=== PATIENT | male | born 1980 | race Caucasian/White ===

== ENCOUNTER 2016-09-15 17:54 | Emergency (ER) | payer OTHER ==
[2016-09-15 18:39] VITALS: BP 125/82
[2016-09-15] MEDS ORDERED: Ketorolac 30 MG/ML SDV IVPUSH ONE (19:08)
[2016-09-15] MEDS ORDERED: Sodium Chloride 0.9% 1,000 ML IV ONE (19:09)
[2016-09-15] MEDS ORDERED: Sodium Chloride 0.9% 10 ML Syringe FLUSH PRN (19:09)
--- NOTE | 2016-09-15 19:17 | EDM.PDOC ---
ED HPI GENERAL MEDICAL PROBLEM - General Chief Complaint: General Stated Complaint: BILATERAL FLANK PAIN, RECOVERING FROM VIRUS Time Seen by Provider: 09/15/16 18:50 Source of Information: Reports: Patient History Limitations: Reports: No Limitations - History of Present Illness INITIAL COMMENTS - FREE TEXT/NARRATIVE: Patient presents today with complaints of continued diarrhea and new onset bilateral flank pain since this morning. Nahum reports he went on a cruise with his 14 days ago, became ill, went to the clinic in [place] 7 days ago and was told he had norovirus. He has not had his stool or lab work done. 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, Other (see below) (fluids) Right Back Pain Score (Numeric/FACES): 6 - Related Data Allergies Allergy/AdvReac Type Severity Reaction Status Date / Time No Known Allergies Allergy Verified 09/15/16 19:04 Home Meds: Home Meds Ondansetron [Zofran ODT] 8 mg PO Q4HR PRN 09/15/16 [History] Promethazine [Phenergan] 25 mg PO Q4H PRN 09/15/16 [History] Past Medical History - Past Health History Medical/Surgical History: Denies Medical/Surgical History Social & Family History - Tobacco Use Smoking Status *Q: Never Smoker - Caffeine Use Caffeine Use: Reports: Coffee, Soda - Alcohol Use Alcohol Use History: Yes Alcohol Use in Last Twelve Months: Yes Alcohol Use Frequency: Socially - Recreational Drug Use Recreational Drug Use: No ED ROS GENERAL - Review of Systems Review Of Systems: See Below Constitutional: Reports: Chills, Malaise, Weakness, Fatigue. Denies: Fever, Night Sweats, Diaphoresis HEENT: Reports: No Symptoms Respiratory: Denies: Shortness of Breath, Wheezing, Cough, Sputum Cardiovascular: Denies: Chest Pain, Blood Pressure Problem, Dyspnea on Exertion , Edema, Lightheadedness, Palpitations Endocrine: Reports: No Symptoms GI/Abdominal: Reports: Abdominal Pain, Diarrhea, Decreased Appetite, Distension , Nausea. Denies: Black Stool, Bloody Stool, Hematemesis, Hematochezia, Melena , Mucous in Stool : Reports: Flank Pain. Denies: Dysuria, Frequency, Hematuria, Urgency, Urinary Retention Musculoskeletal: Reports: Other (bilateral flank pain. ) Skin: Denies: Cyanosis, Bruising, Rash, Erythema, Wound, Lesions Neurological: Reports: No Symptoms Psychiatric: Reports: No Symptoms Hematologic/Lymphatic: Reports: No Symptoms Immunologic: Reports: No Symptoms ED EXAM, GENERAL - Physical Exam Exam: See Below Exam Limited By: No Limitations General Appearance: Alert, WD/WN, No Apparent Distress Eye Exam: Bilateral Eye: Normal Inspection, Vision Changes Ears: Normal External Exam, Normal Canal, Hearing Grossly Normal, Normal TMs Ear Exam: Bilateral Ear: TM normal Nose: Normal Inspection, Normal Mucosa, No Blood Throat/Mouth: Normal Inspection, Normal Lips, Normal Teeth, Normal Gums, Normal Oropharynx, Normal Voice, No Airway Compromise Head: Atraumatic, Normocephalic Neck: Normal Inspection, Supple, Non-Tender, Full Range of Motion Respiratory/Chest: No Respiratory Distress, Lungs Clear, Normal Breath Sounds, No Accessory Muscle Use, Chest Non-Tender Cardiovascular: Normal Peripheral Pulses, Regular Rate, Rhythm, No Edema, No Gallop, No Murmur, No Rub GI/Abdominal: Soft, No Organomegaly, Distended, Tender, Abnormal Bowel Sounds, Other (tenderness to RLQ, LLQ, hyperactive bowel sounds. ). No: Guarding, Rigid , Rebound, Hernia, Hepatomegaly, Splenomegaly Back Exam: Normal Inspection, Full Range of Motion, CVA Tenderness (R), CVA Tenderness (L). No: Decreased Range of Motion, Muscle Spasm, Paraspinal Tenderness, Vertebral Tenderness Extremities: Normal Inspection, Normal Range of Motion, Non-Tender, No Pedal Edema, Normal Capillary Refill Neurological: Alert, Oriented, CN II-XII Intact, Normal Cognition, Normal Gait, No Motor/Sensory Deficits Psychiatric: Normal Affect, Normal Mood Skin Exam: Warm, Dry, Intact, Normal Color, No Rash Lymphatic: No Adenopathy Course - Vital Signs Last Recorded V/S: Last Vital Signs Temp 36.8 C 09/15/16 19:47 Pulse 65 09/15/16 19:47 Resp 16 09/15/16 19:47 BP 125/82 09/15/16 19:47 Pulse Ox 98 09/15/16 19:47 - Orders/Labs/Meds Orders: Active Orders 24 hr Category Date Time Status CLOSTRIDIUM DIFFICILE BY PCR [RM] Stat Lab 09/15/16 19:58 Uncollected NOROVIRUS GROUP 1 AND 2 RT-PCR [REF] Stat Lab 09/15/16 19:58 Ordered OVA AND PARASITES [MREF] Stat Lab 09/15/16 19:58 Uncollected WBC, STOOL [OP] Stat Lab 09/15/16 19:58 Uncollected Sodium Chloride 0.9% [Saline Flush] Med 09/15/16 19:09 Active 10 ml FLUSH ASDIRECTED PRN Saline Lock Insert [OM.PC] Routine Oth 09/15/16 19:09 Ordered Medication Orders Sodium Chloride (Saline Flush) 10 ml FLUSH ASDIRECTED PRN PRN Reason: Keep Vein Open Last Admin: 09/15/16 19:19 Dose: 10 ml Labs: Laboratory Tests 09/15/16 09/15/16 09/15/16 Range/Units 19:18 19:18 19:47 WBC 8.0 (4.5-11.0) K/uL RBC 5.17 (4.30-5.90) M/uL Hgb 15.2 H (12.0-15.0) g/dL Hct 44.2 (40.0-54.0) % MCV 86 (80-98) fL MCH 29 (27-31) pg MCHC 34 (32-36) % Plt Count 192 (150-400) K/uL Neut % (Auto) 46 (36-66) % Lymph % (Auto) 27 (24-44) % Meigs % (Auto) 20 H (2-6) % Eos % (Auto) 2 (2-4) % Baso % (Auto) 5 H (0-1) % Sodium 138 L (140-148) mmol/L Potassium 4.3 (3.6-5.2) mmol/L Chloride 102 (100-108) mmol/L Carbon Dioxide 32 (21-32) mmol/L Anion Gap 8.3 (5.0-14.0) mmol/L BUN 10 (7-18) mg/dL Creatinine 1.1 (0.8-1.3) mg/dL Est Cr Clr Drug Dosing 89.82 mL/min Estimated GFR (MDRD) > 60 (>60) Glucose 92 (74-106) mg/dL Calcium 8.7 (8.5-10.1) mg/dL Total Bilirubin 0.4 (0.2-1.0) mg/dL AST 34 (15-37) U/L ALT 43 (12-78) U/L Alkaline Phosphatase 59 (46-116) U/L Total Protein 7.2 (6.4-8.2) g/dL Albumin 3.4 (3.4-5.0) g/dL Globulin 3.8 H (2.3-3.5) g/dL Albumin/Globulin Ratio 0.9 L (1.2-2.2) Urine Color Yellow Urine Appearance Clear Urine pH 6.0 (4.5-8.0) Ur Specific Baring 1.010 (1.008-1.030) Urine Protein Negative (NEGATIVE) mg/dL Urine Glucose (UA) Normal (NEGATIVE) mg/dL Urine Ketones Negative (NEGATIVE) mg/dL Urine Occult Blood Moderate (NEGATIVE) Urine Nitrite Negative (NEGAITVE) Urine Bilirubin Negative (NEGATIVE) Urine Urobilinogen Normal (NORMAL) mg/dL Ur Leukocyte Esterase Negative (NEGATIVE) Urine RBC 0-5 (0-5) Urine WBC 0-5 (0-5) Ur Epithelial Cells Rare Amorphous Sediment Not seen Urine Bacteria Not seen Urine Mucus Not seen Meds: Medications Generic Name Dose Route Start Last Admin Trade Name Freq PRN Reason Stop Dose Admin Sodium Chloride 10 ml 09/15/16 19:09 09/15/16 19:19 Saline Flush FLUSH 10 ml ASDIRECTED PRN Administration Keep Vein Open Discontinued Medications Generic Name Dose Route Start Last Admin Trade Name Freq PRN Reason Stop Dose Admin Sodium Chloride 1,000 mls @ 1,000 mls/hr 09/15/16 19:09 09/15/16 19:17 Normal Saline IV 09/15/16 20:08 1,000 mls/hr .BOLUS ONE Administration Ketorolac Tromethamine 30 mg 09/15/16 19:08 09/15/16 19:21 Toradol IVPUSH 09/15/16 19:09 30 mg ONETIME ONE Administration - Re-Assessments/Exams Free Text/Narrative Re-Assessment/Exam: 09/15/16 19:24 We will obtain lab work, hydrate and medicate patient for pain. Free Text/Narrative Re-Assessment/Exam: 09/15/16 20:24 Patient improved after toradol and IV fluids. Denies pain, feels comfortable to return home. Departure - Departure Time of Disposition: 20:24 Disposition: Home, Self-Care 01 Condition: good Clinical Impression: Diarrhea, Bilateral flank pain - Discharge Information Instructions: Flank Pain, [id number], Diarrhea, Adult, [id number] Referrals: PCP,None [Primary Care Provider] - Forms: ED Department Discharge Additional Instructions: Keep yourself hydrated by drinking plenty of water. Avoid sugary drinks. You can take Ibuprofen 800mg (4 of 200mg pills) by mouth three times a day for pain. You can alternate acetaminophen 650 mg by mouth for pain as well. Eat the BRAT diet: Bananas Rice Apple sauce [place] Stay away from spicy foods. Practice excellent hand hygiene at all times. You can also try using probiotics: Yogurt Florajen or Florajen # tablets as directed per manufacture label. Return for fever, worsening or with concerns. - My Orders Last 24 Hours: My Active Orders 09/15/16 19:09 Sodium Chloride 0.9% [Saline Flush] 10 ml FLUSH ASDIRECTED PRN Saline Lock Insert [OM.PC] Routine 09/15/16 19:58 CLOSTRIDIUM DIFFICILE BY PCR [RM] Stat NOROVIRUS GROUP 1 AND 2 RT-PCR [REF] Stat OVA AND PARASITES [MREF] Stat WBC, STOOL [OP] Stat - Assessment/Plan Last 24 Hours: My Active Orders 09/15/16 19:09 Sodium Chloride 0.9% [Saline Flush] 10 ml FLUSH ASDIRECTED PRN Saline Lock Insert [OM.PC] Routine 09/15/16 19:58 CLOSTRIDIUM DIFFICILE BY PCR [RM] Stat NOROVIRUS GROUP 1 AND 2 RT-PCR [REF] Stat OVA AND PARASITES [MREF] Stat WBC, STOOL [OP] Stat Assessment:: Diarrhea Viral illness Bilateral flank pain, relieved with toradol IV. Plan: Patient advised to stay hydrated by drinking plenty of water. Avoid sugary drinks. He can take Ibuprofen 800mg (4 of 200mg pills) by mouth three times a day for pain. He can alternate acetaminophen 650 mg by mouth for pain as well. Eat the BRAT diet: Bananas Rice Apple sauce [place] Stay away from spicy foods. Practice excellent hand hygiene at all times. He can also try using probiotics: Yogurt Florajen or Florajen # tablets as directed per manufacture label. Return for fever, worsening or with concerns. Patient lab work reviewed with him, all his questions answered. He is in agreement with plan.
== END 2016-09-15 20:41 | disposition home or self-care (01) ==
LOC: JP.ED 17:54
DX: R19.7 Diarrhea, unspecified (principal); R10.9 Unspecified abdominal pain
CPT/HCPCS: 36415; 80053; 81001; 85025; 96361; 96374; 99284; J1885; J7040; J7050